=== PATIENT | female | born 1990 | race Caucasian/White ===

== ENCOUNTER 2018-06-26 22:27 | Emergency (ER) | payer BC ==
--- NOTE | 2018-06-26 23:29 | ER ---
Nurse's Notes [facility] Name: Dania Boone Age: 28 yrs Sex: Female : 1990 Arrival Date: 06/26/2018 Time: 22:30 Bed 27 Private MD: Diagnosis: Encounter for general adult medical examination Presentation: 06/26 22:43 Presenting complaint: Patient states: I think something stung my tow (right foot) about la1 an hour ago. Transition of care: patient was not received from another setting of care. Onset of symptoms was June 26, 2018. Risk Assessment: Do you want to hurt yourself or someone else? Patient reports no desire to harm self or others. Initial Sepsis Screen: Does the patient meet any 2 criteria? No. Patient's initial sepsis screen is negative. Does the patient have a suspected source of infection? No. Patient's initial sepsis screen is negative. Care prior to arrival: None. 22:43 Method Of Arrival: Ambulatory la1 22:43 Acuity: JAMEY 5 la1 Triage Assessment: 22:51 Bite description: bite sustained to plantar aspect of right second toe by an unknown rv animal, animal information: vaccination(s) is unknown. General: Appears in no apparent distress. comfortable, Behavior is calm, cooperative. 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 - Social history:: Smoking status: Patient/guardian denies using tobacco. - Ebola Screening: : No symptoms or risks identified at this time. Screenin:50 Abuse screen: Denies threats or abuse. Denies injuries from another. Nutritional rv screening: No deficits noted. Tuberculosis screening: No symptoms or risk factors identified. Fall Risk None identified. Assessment: 22:49 General: Appears in no apparent distress. comfortable, Behavior is calm, cooperative. rv Pain: Denies pain. Neuro: Level of Consciousness is awake, alert, obeys commands, Oriented to person, place, time, situation. Cardiovascular: Capillary refill < 3 seconds. Respiratory: Airway is patent. GI: No signs and/or symptoms were reported involving the gastrointestinal system. : No signs and/or symptoms were reported regarding the genitourinary system. EENT: No signs and/or symptoms were reported regarding the EENT system. Derm: Skin is intact, Skin is pink, warm \T\ dry. Musculoskeletal: Swelling present in right second toe. Vital Signs: 22:44 BP 120 / 86; Pulse 80; Resp 16; Temp 97.5; Pulse Ox 100% on R/A; Weight 86.18 kg; la1 Height 5 ft. 4 in. (162.56 cm); 22:52 BP 119 / 93; Pulse 79; Pulse Ox 99% on R/A; rv 22:44 Body Mass Index 32.61 (86.18 kg, 162.56 cm) la1 ED Course: 22:30 Patient arrived in ED. al2 22:43 Triage completed. la1 22:44 Arm band placed on left wrist. la1 22:50 Patricio Gardner MD is Attending Physician. ps1 22:51 Patient has correct armband on for positive identification. Bed in low position. Call rv light in reach. Side rails up X 1. Pulse ox on. NIBP on. 23:46 No provider procedures requiring assistance completed. Patient did not have IV access fc during this emergency room visit. Administered Medications: No medications were administered Outcome: 23:28 Discharge ordered by . ps1 23:45 Medical screen evaluation completed per provider. Patient declined treatment. fc 23:45 Condition: good 23:45 Discharge instructions given to patient, Instructed on follow up and referral plans. Demonstrated understanding of follow-up care. 23:46 Patient left the ED. fc Signatures: Sushma Peña RN RN Alber Manzo RN RN la Patricio Gardner MD MD ps1 Jessica Corona al Noam Dwyer RN RN rv
--- NOTE | 2018-06-26 23:29 | EDPHYS ---
Physician Documentation [facility] Name: Dania Boone Age: 28 yrs Sex: Female : 1990 Arrival Date: 06/26/2018 Time: 22:30 Bed 27 Private MD: ED Physician Patricio Gardner HPI: 06/26 23:12 This 28 yrs old Female presents to ER via Ambulatory with complaints of ps1 Insect Bite, Foot Injury. 23:12 had a possible insect bite. localized to right foot. no obvious injury, redness or ps1 swelling. Pain remitted. . 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 - Social history:: Smoking status: Patient/guardian denies using tobacco. - Ebola Screening: : No symptoms or risks identified at this time. ROS: 23:12 Constitutional: Negative for fever, chills, and weight loss, Eyes: Negative for injury, ps1 pain, redness, and discharge, Cardiovascular: Negative for chest pain, palpitations, and edema, Respiratory: Negative for shortness of breath, cough, wheezing, and pleuritic chest pain, Abdomen/GI: Negative for abdominal pain, nausea, vomiting, diarrhea, and constipation, Neuro: Negative for headache, weakness, numbness, tingling, and seizure, Psych: Negative for depression, anxiety, suicide ideation, homicidal ideation, and hallucinations. 23:12 Skin: Positive for insect bite. Exam: 23:12 Constitutional: This is a well developed, well nourished patient who is awake, alert, ps1 and in no acute distress. Head/Face: Normocephalic, atraumatic. Eyes: Pupils equal round and reactive to light, extra-ocular motions intact. Lids and lashes normal. Conjunctiva and sclera are non-icteric and not injected. Skin: Warm, dry with normal turgor. Normal color with no rashes, no lesions, and no evidence of cellulitis. Vital Signs: 22:44 BP 120 / 86; Pulse 80; Resp 16; Temp 97.5; Pulse Ox 100% on R/A; Weight 86.18 kg; la1 Height 5 ft. 4 in. (162.56 cm); 22:52 BP 119 / 93; Pulse 79; Pulse Ox 99% on R/A; rv 22:44 Body Mass Index 32.61 (86.18 kg, 162.56 cm) la1 MDM: 23:19 Data reviewed: vital signs, nurses notes, and as a result, I will discharge patient. ps1 23:28 Patient medically screened. ps1 Administered Medications: No medications were administered Disposition: 23:18 Encounter for possible insect bite. ps1 Disposition: 06/26/18 23:28 Discharged to Home. Impression: Encounter for general adult medical examination. - Condition is Stable. - Medication Reconciliation Form, Thank You Letter, Antibiotic Education, Prescription Opioid Use form. - Follow up: Private Physician; Reason: Recheck today's complaints, Continuance of care, Re-evaluation by your physician. Follow up: Emergency Department; When: As needed; Reason: Worsening of condition. - Problem is new. - Symptoms are resolved. Signatures: Sushma Peña RN RN Alber Manzo RN RN la1 Patricio Gardner MD MD ps1 Noam Dwyer RN RN rv Corrections: (The following items were deleted from the chart) 23:46 23:28 06/26/2018 23:28 Discharged to Home. Impression: Encounter for general adult medical examination. Condition is Stable. Forms are Medication Reconciliation Form, Thank You Letter, Antibiotic Education, Prescription Opioid Use. Follow up: Private Physician; Reason: Recheck today's complaints, Continuance of care, Re-evaluation by your physician. Follow up: Emergency Department; When: As needed; Reason: Worsening of condition. Problem is new. Symptoms are resolved. ps1
[2018-06-27 00:24] VITALS: TEMP 97.5
[2018-06-27 00:25] VITALS: BP 119/93; O2SAT 99
== END 2018-06-26 23:46 | disposition home or self-care (01) ==
LOC: ER 22:27
DX: Z00.00 Encounter for general adult medical examination without abnormal findings (principal); S90.861A Insect bite (nonvenomous), right foot, initial encounter
CPT/HCPCS: 99283